=== PATIENT | female | born 1995 | race Two or more races ===

== ENCOUNTER 2017-09-29 17:34 | Emergency (ER) | payer OTHER ==
[~2017-09-29] VITALS: Ht 160 cm; Wt 54.4 kg
[2017-09-29] MEDS ORDERED: TETANUS-DIPTH-ACEL PERTUSSIS 0.5ML SYRG IM ONE (19:30)
[2017-09-29 19:44] VITALS: BP 115/72
== END 2017-09-29 21:42 | disposition home or self-care (01) ==
LOC: ER 17:34
DX: S61.211A Laceration without foreign body of left index finger without damage to nail, initial encounter (principal); W26.0XXA Contact with knife, initial encounter; Y93.89 Activity, other specified; Y99.8 Other external cause status; Y92.89 Other specified places as the place of occurrence of the external cause
CPT/HCPCS: 12002; 90471; 90715